=== PATIENT | female | born 1995 | race Asian ===

== ENCOUNTER 2017-10-05 20:26 | Emergency (ER) | payer OTHER ==
[~2017-10-05] VITALS: Ht 160 cm; Wt 57.1 kg
[2017-10-05] MEDS ORDERED: IBUPROFEN 200 MG TABLET ONE (22:46)
[2017-10-05 23:00] VITALS: BP 98/65
[2017-10-05] MEDS ORDERED: IBUPROFEN 200 MG TABLET PO ONE (23:00)
== END 2017-10-05 23:02 | disposition home or self-care (01) ==
LOC: ED 22:40
DX: S53.442A Ulnar collateral ligament sprain of left elbow, initial encounter (principal); W19.XXXA Unspecified fall, initial encounter; Y93.43 Activity, gymnastics; Y92.89 Other specified places as the place of occurrence of the external cause; Y99.8 Other external cause status
CPT/HCPCS: 99284